=== PATIENT | male | born 1965 | race Two or more races ===

== ENCOUNTER 2019-08-26 00:48 | Emergency (ER) | payer SELFPAY ==
[~2019-08-26] VITALS: Ht 177.8 cm; Wt 83.9 kg
[2019-08-26 01:15] VITALS: BP 163/86
== END 2019-08-26 01:19 | disposition left against medical advice (07) ==
LOC: ER 01:00
DX: M25.512 Pain in left shoulder (principal); M79.652 Pain in left thigh; Z53.21 Procedure and treatment not carried out due to patient leaving prior to being seen by health care provider

== ENCOUNTER 2020-10-26 21:49 | Emergency (ER) | payer OTHER ==
[~2020-10-26] VITALS: Ht 177.8 cm; Wt 91.6 kg
[2020-10-26 22:00] VITALS: BP 153/67
[2020-10-26] MEDS ORDERED: HYDROmorphone HCL 2 MG/ML VL IM ONE (23:00)
[2020-10-26] MEDS ORDERED: ONDANSETRON ODT 4 MG TAB PO ONE (23:00)
== END 2020-10-27 04:19 | disposition left against medical advice (07) ==
LOC: EDBD 21:49 → ER 21:50
DX: S53.104A Unspecified dislocation of right ulnohumeral joint, initial encounter (principal); F10.929 Alcohol use, unspecified with intoxication, unspecified; X58.XXXA Exposure to other specified factors, initial encounter; Y93.89 Activity, other specified; Y92.89 Other specified places as the place of occurrence of the external cause; Y99.8 Other external cause status
CPT/HCPCS: 73070